=== PATIENT | female | born 1960 | race African-American/Black ===

== ENCOUNTER 2021-07-24 01:16 | Inpatient (IN) ==
[2021-07-24] MEDS ORDERED: FUROSEMIDE 100 MG/10 ML VIAL ONE (01:27)
[2021-07-24] MEDS ORDERED: NITROGLYCERIN 2% OINT 1 INCH/GM PACK TOP STA (01:31)
[2021-07-24] MEDS ORDERED: ONDANSETRON 4 MG/2 ML VIAL IV STA (01:31)
[2021-07-24] MEDS ORDERED: FUROSEMIDE 100 MG/10 ML VIAL IV STA (01:31)
[2021-07-24] MEDS ORDERED: MORPHINE 4 MG/1 ML VIAL ONE (01:36)
[2021-07-24] MEDS ORDERED: MORPHINE 4 MG/1 ML VIAL IV STA (01:37)
[2021-07-24 01:43] LABS: Basophils % 0.4 % (0.0-0.8); Eosinophils # 0.2 10*3/uL (0.0-0.87); Eosinophils % 2.4 % (0.00-10.9); Hematocrit 33.7 VOL% (35.7-47.0); Hemoglobin 10.8 GM/DL (12.0-16.0); Immature Granulocytes % 0.3 %; Immature Granulocytes Absolute 0.02 #; Lymphocytes # 2.5 10*3/uL (1.4-4.0); Lymphocytes % 32.5 % (21.3-54.2); Mean Corpuscular Volume 94.9 FL (87-102); Mean Platelet Volume 12.1 FL (9.6-12.0); Monocytes % 4.4 % (1.7-12.7); Platelet Count 227 T/CUMM (130-400); Red Blood Count 3.55 MC/CUMM (3.8-5.5); Red Cell Distribution Width 14.4 % (9.3-17.3); White Blood Count 7.8 T/CUMM (4-12)
[2021-07-24 02:00] LABS: ABG Base Excess -3.3 MMOL/L (-2.5-2.5); ABG HCO3 21.7 MMOL/L (20-26); ABG Oxygen Saturation 98.1 % (95-100); ABG PCO2 41.3 MM HG (35-48); ABG PH 7.341 (7.35-7.45); ABG TCO2 20.3 MMOL/L (23-27)
[2021-07-24 02:02] LABS: PT Patient Result 10.9 SECS (10.5-12.0)
[2021-07-24 03:27] LABS: Albumin 3.5 G/DL (3.4-5.0); Bilirubin,Total 0.6 MG/DL (0.20-1.00); Calcium 9.6 MG/DL (8.5-10.1); Osmolality,Calculated 305.4 MOS/KG (273-304); Potassium 4.1 MMOL/L (3.5-5.1); Total Protein 7.5 G/DL (6.4-8.2)
[2021-07-24] MEDS ORDERED: hydrALAZINE 20 MG/1 ML VIAL IV PRN (04:24)
[2021-07-24] MEDS ORDERED: ACETAMINOPHEN 325 MG TABLET PO PRN (04:24)
[2021-07-24] MEDS ORDERED: GLUCAGON 1 MG VIAL IM PRN (04:24)
[2021-07-24] MEDS ORDERED: ONDANSETRON 4 MG/2 ML VIAL IV PRN (04:24)
[2021-07-24] MEDS ORDERED: DEXTROSE 10% 250 ML BAG IV PRN (04:35)
[2021-07-24] MEDS: cefTRIAXone 1,000 MG in SODIUM CHLORIDE 0.9% 100 ML IV SCH (06:22)
[2021-07-24 07:10] LABS: Risk Ratio 2.82; Thyroid Stimulating Hormone 3.45 uIU/ml (0.358-3.74); VLDL Cholesterol 21.2 MG/DL
[2021-07-24] MEDS: AZITHROMYCIN INJ 500 MG in SODIUM CHLORIDE 0.9% 250 ML IV SCH (07:13)
[2021-07-24] MEDS: ALBUTEROL/IPRATROPIUM 3 ML NEB RESP TX SCH ×3 (07:25→20:01)
[2021-07-24] MEDS: INSULIN REGULAR 100 UNIT/ML SUBCUT SCH ×4 (07:30→21:06)
[2021-07-24] MEDS: PANTOPRAZOLE 40 MG TABLET PO SCH (09:12)
[2021-07-24] MEDS: DOCUSATE SODIUM 100 MG CAPSULE PO SCH ×2 (09:12→21:05)
[2021-07-24] MEDS: ASPIRIN EC 81 MG TABLET PO SCH (16:24)
[2021-07-24] MEDS: carvediloL 6.25 MG TABLET PO SCH ×2 (16:24→21:05)
[2021-07-24] MEDS: ROSUVASTATIN 20 MG TABLET PO SCH (21:05)
[2021-07-25] MEDS: ALBUTEROL/IPRATROPIUM 3 ML NEB RESP TX SCH ×4 (01:04→19:20)
[2021-07-25 04:53] LABS: Basophils % 0.3 % (0.0-0.8); Eosinophils # 0.1 10*3/uL (0.0-0.87); Eosinophils % 1.6 % (0.00-10.9); Hemoglobin 8.3 GM/DL (12.0-16.0); Immature Granulocytes % 0.4 %; Immature Granulocytes Absolute 0.03 #; Lymphocytes # 1.3 10*3/uL (1.4-4.0); Lymphocytes % 17.2 % (21.3-54.2); Mean Corpuscular HGB Conc 31.9 GM/DL (32-36); Mean Corpuscular Volume 94.5 FL (87-102); Mean Platelet Volume 12.4 FL (9.6-12.0); Monocytes % 7.8 % (1.7-12.7); Neutrophils % 72.7 % (38.7-73.9); Platelet Count 161 T/CUMM (130-400); Red Blood Count 2.75 MC/CUMM (3.8-5.5); Red Cell Distribution Width 14.5 % (9.3-17.3); White Blood Count 7.4 T/CUMM (4-12)
[2021-07-25] MEDS: cefTRIAXone 1,000 MG in SODIUM CHLORIDE 0.9% 100 ML IV SCH (05:10)
[2021-07-25 05:46] LABS: Calcium 9.6 MG/DL (8.5-10.1); Potassium 4.6 MMOL/L (3.5-5.1)
[2021-07-25] MEDS: AZITHROMYCIN INJ 500 MG in SODIUM CHLORIDE 0.9% 250 ML IV SCH (06:03)
[2021-07-25] MEDS: INSULIN REGULAR 100 UNIT/ML SUBCUT SCH ×4 (08:46→20:29)
[2021-07-25] MEDS: carvediloL 6.25 MG TABLET PO SCH (10:09)
[2021-07-25] MEDS: DOCUSATE SODIUM 100 MG CAPSULE PO SCH ×2 (10:09→20:27)
[2021-07-25] MEDS: ASPIRIN EC 81 MG TABLET PO SCH (10:09)
[2021-07-25] MEDS: PANTOPRAZOLE 40 MG TABLET PO SCH (10:09)
[2021-07-25] MEDS: ENOXAPARIN 30 MG/0.3 ML SYRINGE SUBCUT SCH (12:45)
[2021-07-25] MEDS: CLOPIDOGREL 75 MG TABLET PO SCH (12:45)
[2021-07-25] MEDS: ROSUVASTATIN 20 MG TABLET PO SCH (20:27)
[2021-07-26] MEDS: ALBUTEROL/IPRATROPIUM 3 ML NEB RESP TX SCH ×3 (00:30→13:27)
[2021-07-26 05:25] LABS: Basophils % 0.3 % (0.0-0.8); Eosinophils # 0.1 10*3/uL (0.0-0.87); Eosinophils % 1.9 % (0.00-10.9); Hematocrit 24.7 VOL% (35.7-47.0); Hemoglobin 8.1 GM/DL (12.0-16.0); Immature Granulocytes % 0.3 %; Immature Granulocytes Absolute 0.02 #; Lymphocytes # 1.7 10*3/uL (1.4-4.0); Lymphocytes % 28.6 % (21.3-54.2); Mean Corpuscular HGB Conc 32.8 GM/DL (32-36); Mean Platelet Volume 12.4 FL (9.6-12.0); Neutrophils % 60.9 % (38.7-73.9); Platelet Count 144 T/CUMM (130-400); Red Cell Distribution Width 14.3 % (9.3-17.3); White Blood Count 5.8 T/CUMM (4-12)
[2021-07-26] MEDS: cefTRIAXone 1,000 MG in SODIUM CHLORIDE 0.9% 100 ML IV SCH (05:25)
[2021-07-26 05:35] LABS: Calcium 9.8 MG/DL (8.5-10.1); Osmolality,Calculated 290.8 MOS/KG (273-304); Potassium 4.6 MMOL/L (3.5-5.1)
[2021-07-26] MEDS: AZITHROMYCIN INJ 500 MG in SODIUM CHLORIDE 0.9% 250 ML IV SCH (06:00)
[2021-07-26] MEDS: INSULIN REGULAR 100 UNIT/ML SUBCUT SCH ×3 (08:21→16:33)
[2021-07-26] MEDS: CLOPIDOGREL 75 MG TABLET PO SCH (09:01)
[2021-07-26] MEDS: ASPIRIN EC 81 MG TABLET PO SCH (09:01)
[2021-07-26] MEDS: DOCUSATE SODIUM 100 MG CAPSULE PO SCH (09:02)
[2021-07-26] MEDS: PANTOPRAZOLE 40 MG TABLET PO SCH (09:02)
[2021-07-26] MEDS: ENOXAPARIN 30 MG/0.3 ML SYRINGE SUBCUT SCH ×2 (09:02→10:22)
[2021-07-26] MEDS ORDERED: HEPARIN 10,000 UNIT/10 ML VIAL IV SCH (09:45)
[2021-07-26] MEDS ORDERED: LOSARTAN 50 MG TABLET PO SCH (11:00)
[2021-07-26] MEDS ORDERED: METOPROLOL SUCCINATE XL 25 MG TABLET PO SCH (11:00)
[2021-07-26 12:21] VITALS: BP 139/84
== END 2021-07-26 17:30 | disposition home or self-care (01) | DRG 280 ==
LOC: EDUNIT# → EDBD → N.ED 01:16 → N.EDINP 04:25 → N.TELEN 17:45
PROVIDERS: ADMIT Internal Medicine; ATTEND Internal Medicine

== ENCOUNTER 2022-01-01 03:43 | Inpatient (IN) ==
[2022-01-01] MEDS ORDERED: NITROGLYCERIN 2% OINT 1 INCH/GM PACK TOP ONE (03:49)
[2022-01-01] MEDS ORDERED: NITROGLYCERIN 2% OINT 1 INCH/GM PACK TOP STA (03:52)
[2022-01-01] MEDS ORDERED: ALBUTEROL/IPRATROPIUM 3 ML NEB RESP TX STA (03:52)
[2022-01-01 04:04] LABS: Basophils % 0.2 % (0.0-0.8); Eosinophils # 0.2 10*3/uL (0.0-0.87); Eosinophils % 1.8 % (0.00-10.9); Hematocrit 33.3 VOL% (35.7-47.0); Hemoglobin 10.5 GM/DL (12.0-16.0); Immature Granulocytes % 0.2 %; Immature Granulocytes Absolute 0.02 #; Lymphocytes # 1.5 10*3/uL (1.4-4.0); Lymphocytes % 18.8 % (21.3-54.2); Mean Corpuscular HGB Conc 31.5 GM/DL (32-36); Mean Corpuscular Volume 95.4 FL (87-102); Mean Platelet Volume 11.8 FL (9.6-12.0); Monocytes # 0.5 10*3/uL (0.11-0.8); Monocytes % 5.9 % (1.7-12.7); Neutrophils % 73.1 % (38.7-73.9); Platelet Count 208 T/CUMM (130-400); Red Blood Count 3.49 MC/CUMM (3.8-5.5); Red Cell Distribution Width 16.3 % (9.3-17.3); White Blood Count 8.1 T/CUMM (4-12)
[2022-01-01 04:14] LABS: PT Patient Result 10.6 SECS (10.1-12.1)
[2022-01-01 04:32] LABS: Albumin 3.5 G/DL (3.4-5.0); Calcium 9.9 MG/DL (8.5-10.1); Osmolality,Calculated 301.1 MOS/KG (273-304); Potassium 4.7 MMOL/L (3.5-5.1); Total Protein 7.1 G/DL (6.4-8.2)
[2022-01-01] MEDS ORDERED: DEXTROSE 10% 250 ML BAG IV PRN (05:08)
[2022-01-01] MEDS ORDERED: DEXTROSE 50% 25 GM/50 ML VIAL IV PRN (05:08)
[2022-01-01] MEDS ORDERED: GLUCAGON 1 MG VIAL IM PRN ×2 (05:08)
[2022-01-01] MEDS ORDERED: ACETAMINOPHEN 325 MG TABLET PO PRN (05:08)
[2022-01-01] MEDS ORDERED: cefTRIAXone 1,000 MG in SODIUM CHLORIDE 0.9% 100 ML IV STA (05:11)
[2022-01-01] MEDS: NITROGLYCERIN 2% OINT 1 INCH/GM PACK TOP SCH ×4 (07:09→23:46)
[2022-01-01] MEDS: INSULIN REGULAR 100 UNIT/ML SUBCUT SCH ×4 (08:42→23:44)
[2022-01-01] MEDS: PANTOPRAZOLE 40 MG TABLET PO SCH (08:45)
[2022-01-01] MEDS: HEPARIN 5,000 UNIT/1 ML VIAL SUBCUT SCH ×2 (08:46→21:17)
[2022-01-01] MEDS ORDERED: HEPARIN 10,000 UNIT/10 ML VIAL IV SCH (11:30)
[2022-01-01] MEDS: AZITHROMYCIN INJ 500 MG in SODIUM CHLORIDE 0.9% 250 ML IV SCH (17:09)
[2022-01-02] MEDS ORDERED: ALBUTEROL/IPRATROPIUM 3 ML NEB RESP TX PRN (01:45)
[2022-01-02] MEDS: ONDANSETRON 4 MG/2 ML VIAL IV PRN ×2 (05:05→20:00)
[2022-01-02] MEDS: NITROGLYCERIN 2% OINT 1 INCH/GM PACK TOP SCH ×3 (05:11→17:35)
[2022-01-02 05:16] LABS: Basophils % 0.2 % (0.0-0.8); Eosinophils % 0.2 % (0.00-10.9); Hematocrit 31.8 VOL% (35.7-47.0); Hemoglobin 10.1 GM/DL (12.0-16.0); Immature Granulocytes % 0.2 %; Immature Granulocytes Absolute 0.01 #; Lymphocytes # 1.3 10*3/uL (1.4-4.0); Lymphocytes % 29.8 % (21.3-54.2); Mean Corpuscular HGB Conc 31.8 GM/DL (32-36); Mean Corpuscular Volume 94.4 FL (87-102); Mean Platelet Volume 11.8 FL (9.6-12.0); Monocytes # 0.5 10*3/uL (0.11-0.8); Monocytes % 10.3 % (1.7-12.7); Neutrophils % 59.3 % (38.7-73.9); Platelet Count 144 T/CUMM (130-400); Red Blood Count 3.37 MC/CUMM (3.8-5.5); White Blood Count 4.5 T/CUMM (4-12)
[2022-01-02 05:47] LABS: Albumin 3.3 G/DL (3.4-5.0); Calcium 9.9 MG/DL (8.5-10.1); Potassium 4.5 MMOL/L (3.5-5.1); Total Protein 7.1 G/DL (6.4-8.2)
[2022-01-02 05:51] LABS: Calcium 10.3 MG/DL (8.5-10.1); Osmolality,Calculated 289.3 MOS/KG (273-304); Potassium 4.5 MMOL/L (3.5-5.1)
[2022-01-02] MEDS: PANTOPRAZOLE 40 MG TABLET PO SCH (09:39)
[2022-01-02] MEDS: cefTRIAXone 1,000 MG in SODIUM CHLORIDE 0.9% 100 ML IV SCH (09:39)
[2022-01-02] MEDS: HEPARIN 5,000 UNIT/1 ML VIAL SUBCUT SCH ×2 (09:39→23:51)
[2022-01-02] MEDS: INSULIN REGULAR 100 UNIT/ML SUBCUT SCH ×4 (10:28→21:16)
[2022-01-02] MEDS: AZITHROMYCIN INJ 500 MG in SODIUM CHLORIDE 0.9% 250 ML IV SCH (15:57)
[2022-01-02] MEDS: predniSONE 20 MG TABLET PO SCH ×2 (15:57→23:50)
[2022-01-02] MEDS ORDERED: diphenhydrAMINE CAP 25 MG CAPSULE PO PRN (17:00)
[2022-01-03] MEDS: NITROGLYCERIN 2% OINT 1 INCH/GM PACK TOP SCH ×3 (00:24→14:45)
[2022-01-03] MEDS: INSULIN REGULAR 100 UNIT/ML SUBCUT SCH ×2 (13:34→16:34)
[2022-01-03] MEDS: cefTRIAXone 1,000 MG in SODIUM CHLORIDE 0.9% 100 ML IV SCH (13:34)
[2022-01-03] MEDS: HEPARIN 5,000 UNIT/1 ML VIAL SUBCUT SCH (13:41)
[2022-01-03] MEDS: predniSONE 20 MG TABLET PO SCH (13:41)
[2022-01-03] MEDS: PANTOPRAZOLE 40 MG TABLET PO SCH (13:41)
[2022-01-03 15:18] VITALS: BP 117/64
[2022-01-03] MEDS: AZITHROMYCIN INJ 500 MG in SODIUM CHLORIDE 0.9% 250 ML IV SCH (16:34)
== END 2022-01-03 17:02 | disposition home or self-care (01) | DRG 189 ==
LOC: EDBD → EDUNIT# → N.ED 03:43 → N.EDINP 03:43 → N.3E 05:43 → SUATTDRO 10:07
PROVIDERS: ADMIT Internal Medicine; ATTEND Internal Medicine

== ENCOUNTER 2022-03-13 04:58 | Observation (INO) ==
[2022-03-13] MEDS ORDERED: ASPIRIN 325 MG TABLET PO STA (05:07)
[2022-03-13] MEDS ORDERED: ALBUTEROL/IPRATROPIUM 3 ML NEB RESP TX STA (05:07)
[2022-03-13] MEDS ORDERED: MORPHINE 2 MG/1 ML SYRINGE IV STA (05:07)
[2022-03-13] MEDS ORDERED: FUROSEMIDE 100 MG/10 ML VIAL IV STA (05:07)
[2022-03-13] MEDS ORDERED: NITROGLYCERIN 2% OINT 1 INCH/GM PACK TOP STA (05:07)
[2022-03-13] MEDS ORDERED: methylPREDNISolone SOD SUC 125 MG/2 ML VIAL IV STA (05:07)
[2022-03-13] MEDS ORDERED: ONDANSETRON 4 MG/2 ML VIAL IV STA (05:07)
[2022-03-13 05:36] LABS: ABG Base Excess -1.1 MMOL/L (-2.5-2.5); ABG HCO3 23.4 MMOL/L (20-26); ABG Oxygen Saturation 91.9 % (95-100); ABG PCO2 34.1 MM HG (35-48); ABG PO2 65.1 MM HG (80-95); ABG TCO2 20.6 MMOL/L (23-27); Allen Test Positive
[2022-03-13 05:43] LABS: Basophils % 0.3 % (0.0-0.8); Eosinophils # 0.1 10*3/uL (0.0-0.87); Eosinophils % 1.7 % (0.00-10.9); Hematocrit 32.4 VOL% (35.7-47.0); Hemoglobin 10.2 GM/DL (12.0-16.0); Immature Granulocytes % 0.2 %; Immature Granulocytes Absolute 0.01 #; Lymphocytes # 0.8 10*3/uL (1.4-4.0); Lymphocytes % 12.2 % (21.3-54.2); Mean Corpuscular HGB Conc 31.5 GM/DL (32-36); Mean Corpuscular Volume 98.2 FL (87-102); Mean Platelet Volume 11.4 FL (9.6-12.0); Monocytes # 0.4 10*3/uL (0.11-0.8); Monocytes % 5.7 % (1.7-12.7); Neutrophils % 79.9 % (38.7-73.9); Platelet Count 213 T/CUMM (130-400); Red Cell Distribution Width 16.2 % (9.3-17.3); White Blood Count 6.6 T/CUMM (4-12)
[2022-03-13 06:00] LABS: PT Patient Result 10.9 SECS (10.1-12.1)
[2022-03-13 06:21] LABS: Albumin 3.5 G/DL (3.4-5.0); Bilirubin,Total 0.5 MG/DL (0.20-1.00); Calcium 9.7 MG/DL (8.5-10.1); Osmolality,Calculated 310.7 MOS/KG (273-304); Potassium 4.8 MMOL/L (3.5-5.1); Total Protein 6.7 G/DL (6.4-8.2)
[2022-03-13] MEDS ORDERED: ACETAMINOPHEN 325 MG TABLET PO PRN (08:51)
[2022-03-13] MEDS ORDERED: ONDANSETRON 4 MG/2 ML VIAL IV PRN (08:51)
[2022-03-13] MEDS ORDERED: GLUCAGON 1 MG VIAL IM PRN (08:51)
[2022-03-13] MEDS ORDERED: NITROGLYCERIN SL 0.4 MG TABLET SL PRN (08:52)
[2022-03-13] MEDS ORDERED: DEXTROSE 10% 250 ML BAG IV PRN (08:55)
[2022-03-13] MEDS ORDERED: SEVELAMER CARBONATE 800 MG TABLET PO SCH (09:00)
[2022-03-13] MEDS: PANTOPRAZOLE 40 MG TABLET PO SCH (09:14)
[2022-03-13] MEDS: amLODIPine 10 MG TABLET PO SCH (09:14)
[2022-03-13] MEDS: CLOPIDOGREL 75 MG TABLET PO SCH (09:14)
[2022-03-13] MEDS ORDERED: ALBUTEROL 2.5 MG/3 ML NEB RESP TX PRN (09:21)
[2022-03-13] MEDS: HEPARIN 5,000 UNIT/1 ML VIAL SUBCUT SCH ×2 (10:40→20:59)
[2022-03-13] MEDS: INSULIN LISPRO 100 UNIT/ML SUBCUT SCH ×3 (11:21→20:57)
[2022-03-13] MEDS: SEVELAMER CARBONATE 800 MG TABLET PO SCH ×2 (11:25→16:52)
[2022-03-13] MEDS ORDERED: HEPARIN 10,000 UNIT/10 ML VIAL IV SCH (14:30)
[2022-03-13] MEDS ORDERED: ROSUVASTATIN 20 MG TABLET PO SCH (21:00)
[2022-03-14 05:30] LABS: Basophils % 0.2 % (0.0-0.8); Hematocrit 28.6 VOL% (35.7-47.0); Hemoglobin 9.2 GM/DL (12.0-16.0); Immature Granulocytes % 1.3 %; Immature Granulocytes Absolute 0.07 #; Lymphocytes # 0.9 10*3/uL (1.4-4.0); Lymphocytes % 16.2 % (21.3-54.2); Mean Corpuscular HGB Conc 32.2 GM/DL (32-36); Mean Corpuscular Volume 97.3 FL (87-102); Mean Platelet Volume 11.6 FL (9.6-12.0); Monocytes # 0.5 10*3/uL (0.11-0.8); Monocytes % 8.7 % (1.7-12.7); Neutrophils % 73.6 % (38.7-73.9); Platelet Count 214 T/CUMM (130-400); Red Blood Count 2.94 MC/CUMM (3.8-5.5); Red Cell Distribution Width 16.2 % (9.3-17.3); White Blood Count 5.3 T/CUMM (4-12)
[2022-03-14 05:48] LABS: Calcium 9.9 MG/DL (8.5-10.1); Osmolality,Calculated 293.5 MOS/KG (273-304); Potassium 4.9 MMOL/L (3.5-5.1)
[2022-03-14] MEDS: SEVELAMER CARBONATE 800 MG TABLET PO SCH ×2 (08:26→12:32)
[2022-03-14] MEDS: CLOPIDOGREL 75 MG TABLET PO SCH (08:26)
[2022-03-14] MEDS: INSULIN LISPRO 100 UNIT/ML SUBCUT SCH ×2 (08:26→12:31)
[2022-03-14] MEDS: amLODIPine 10 MG TABLET PO SCH (08:26)
[2022-03-14] MEDS: PANTOPRAZOLE 40 MG TABLET PO SCH (08:26)
[2022-03-14] MEDS ORDERED: ASPIRIN EC 81 MG TABLET PO SCH (09:00)
[2022-03-14 12:24] VITALS: BP 135/79
[2022-03-14] MEDS: HEPARIN 5,000 UNIT/1 ML VIAL SUBCUT SCH (12:28)
== END 2022-03-14 14:54 | disposition home or self-care (01) ==
LOC: EDBD → EDUNIT# → N.EDINP 04:58 → N.ED 04:58 → N.2W 09:20
PROVIDERS: ADMIT Internal Medicine; ATTEND Internal Medicine